=== PATIENT | male | born 1930 | race Caucasian/White ===

== ENCOUNTER → 2017-03-27 | Outpatient (CLI) | payer MEDICARE, BC ==
[~2017-03-27] MED LIST: ALBUTEROL 0.5ML INH; ALPRAZOLAM ODT0.5 MG PO; AMARYL PO; BACTRIM DS TABL1 TA1 PO; BISOPROLOL HCTZ PO; FLOMAX0.4 M1 PO; GABAPENTIN300 M2 PO; HYDROCODONE/APA1 T16 PO; IPRAT-ALBUT 0.5-3 ML IH; LEVEMIR FL100 UNIT/1 SUBQ; LISINOPRIL10 MG PO; LORTAB 7.5-3251 EACH PO; METFORMIN HCL1000 M1 PO; OMEPRAZOLE40 M1 PO; PEPCID40 MG PO; SYMBICORT INH; TOPROL XL50 MG PO; XANAX0.5 M1 PO; XARELTO20 MG PO; ZIAC; ZIAC PO
[2017-03-27 10:50] LABS: PROSTATE SPECIFIC AG SCR 2.78 ng/ml (0.0-4.0)
[2017-03-27 10:51] LABS: ALBUMIN SERUM 4.2 g/dL (3.5-5.0); BILIRUBIN,TOTAL 0.7 mg/dL (0.2-2.0); BUN/CREATININE RATIO 12.72; CALCIUM SERUM 9.3 mg/dL (8.4-10.2); CREATININE SERUM 1.1 mg/dL (0.6-1.4); GLOM FILT RATE Estimated 60.5 mL/min (>60); POTASSIUM 4.2 mmol/L (3.5-5.1); PROTEIN TOTAL SERUM 6.7 g/dL (6.0-8.3)
[2017-03-29 05:27] LABS: MICROALB UR (PNL) 0.8 mg/dL (***)
== END | disposition home or self-care (01) ==
LOC: CLAB 09:22
PROVIDERS: Family Medicine
DX: E11.69 Type 2 diabetes mellitus with other specified complication (principal); I10 Essential (primary) hypertension; E78.2 Mixed hyperlipidemia
CPT/HCPCS: 36415; 80053; 80061; 82043; 82570; 83036; G0103